=== PATIENT | male | born 1955 | race Caucasian/White ===

== ENCOUNTER → 2017-02-09 | Day surgery (SDC) | payer OTHER ==
[~2017-02-09] VITALS: Ht 185.4 cm; Wt 91.0 kg
[~2017-02-09] MED LIST: AMLODIPINE BESYL5 MG PO; ASPIR 8181 M1 PO; FLONASE SENSIM9.9 ML BOTH NARES; HUMALOG100 UNIT/1 SC; LANTUS 10100 UNITS/ SC; LISINOPRIL20 MG PO; LO-DOSE ASPIRIN81 M2 PO; NITROSTAT0.4 MG SL; ONE DAILY FOR1 EACH PO; SYNTHROID200 MCG PO; TOPROL XL25 MG PO
[2017-02-09 10:49] LABS: POINT-OF-CARE METER ID UU13113696
[2017-02-09 13:38] LABS: POINT-OF-CARE METER ID UU13113819
== END | disposition home or self-care (01) ==
LOC: CATH 02-01 11:30
PROVIDERS: Internal Medicine Cardiovascular Disease
DX: I25.10 Atherosclerotic heart disease of native coronary artery without angina pectoris (principal); I25.84 Coronary atherosclerosis due to calcified coronary lesion; E78.2 Mixed hyperlipidemia; I10 Essential (primary) hypertension; E10.9 Type 1 diabetes mellitus without complications; Z82.49 Family history of ischemic heart disease and other diseases of the circulatory system; Z79.82 Long term (current) use of aspirin
CPT/HCPCS: 82948; 85347; C1769; C1887; J1644; J2250; J3010